=== PATIENT | male | born 1970 | race African-American/Black ===

== ENCOUNTER 2016-10-16 20:30 | Inpatient (IN) | payer MEDICARE ==
[~2016-10-16] VITALS: Ht 188 cm; Wt 77.1 kg
[2016-10-16 21:13] VITALS: BP 134/95
[2016-10-16] MEDS ORDERED: Ketorolac 30mg Inj IV ONE (21:15)
[2016-10-16 21:24] LABS: BASOPHILS % (AUTO) 1.4 % (0.0-2.0); EOSINOPHILS % (AUTO) 0.3 % (0.0-3.0); LYMPHOCYTES % (AUTO) 28.2 % (20.0-45.0); MEAN CORPUSCULAR VOLUME 91 FL (80-99); MEAN PLATELET VOLUME 7.4 FL (6.5-10.1); MONOCYTES % (AUTO) 3.9 % (1.0-10.0); NEUTROPHILS % (AUTO) 66.2 % (45.0-75.0); PLATELET COUNT 337 K/UL (150-450); RED BLOOD COUNT 5.18 M/UL (4.70-6.10); WHITE BLOOD COUNT 10.7 K/UL (4.8-10.8)
[2016-10-16 21:51] LABS: ALANINE AMINOTRANSFERASE 21 U/L (3-41); ALBUMIN/GLOBULIN RATIO 1.6 (1.0-2.7); ANION GAP 20 (5-15); ASPARTATE AMINO TRANSFERASE 17 U/L (5-40); CALCIUM 9.4 mg/dL (8.6-10.2); CARBON DIOXIDE 22 mEQ/L (20-30); CHLORIDE 94 mEQ/L (98-107); GLOMERULAR FILTRATION RATE > 60 mL/min (>60); HEMOLYSIS 19; SODIUM 136 mEQ/L (135-145); TOTAL PROTEIN 7.1 g/dL (6.6-8.7); TROPONIN I < 0.30 ng/mL (<=0.30)
[2016-10-16 22:05] LABS: PROTHROMBIN TIME 9.7 SEC (9.30-11.50)
--- NOTE | 2016-10-16 22:13 | Emergency Room Report ---
History of Present Illness General Chief Complaint: Generalized Weakness Source: Patient Present Illness HPI The patient presents with generalized weakness, blurred vision, polyuria polydipsia and total body pain. Apparently been off his medication since early July. There's been some mixup with his insurance. The patient denies any fevers, cough, vomiting, diarrhea or dysuria. He has diabetes and multiple sclerosis and has not been taking medication. His equilibrium is off when his multiple sclerosis is not treated. He wears a knee brace on the right-hand side. He denies any trauma. No rashes. Denies SI or HI. No headache. Allergies: Coded Allergies: CHEESE (Verified Allergy, Unknown, 10/17/16) DIPHENHYDRAMINE (Verified Allergy, Unknown, 10/16/16) Patient History Past Medical History: see triage record, DM, other - multiple sclerosis Social History: Reports: drug use, smoking Social History Narrative lives with room mate ("don't ask") Reviewed Nursing Documentation: PMH: Agreed, PSxH: Agreed Nursing Documentation-PMH Hx Diabetes: Yes Review of Systems All Other Systems: negative except mentioned in HPI Physical Exam Vital Signs Date Time Temp Pulse Resp B/P Pulse Ox O2 Delivery O2 Flow Rate FiO2 10/16/16 20:35 98.4 114 15 134/95 99 Room Air Sp02 EP Interpretation: reviewed, normal General Appearance: well appearing, no apparent distress, GCS 15 Head: normocephalic Eyes: bilateral eye PERRL, bilateral eye normal inspection ENT: dry mucus membranes Neck: supple Respiratory: lungs clear, normal breath sounds Cardiovascular #1: regular rate, rhythm Cardiovascular #2: 2+ radial (R) Gastrointestinal: normal inspection, normal bowel sounds, non tender, no mass, non-distended Musculoskeletal: back normal, gait/station normal, normal range of motion Neurologic: alert, oriented x3, motor strength/tone normal, DTRs symmetric, sensory intact, cerebellar normal Psychiatric: mood/affect normal, no suicidal/homicidal ideation, other - poor insight Reflexes: 2+ knee (R), 2+ knee (L) Skin: normal inspection, warm/dry Medical Decision Making Diagnostic Impression: Primary Impression: Hyperglycemia Additional Impressions: Methamphetamine abuse Multiple sclerosis Weakness Non compliance w medication regimen ER Course The patient presents with generalized weakness and polyuria polydipsia and lack of coordination with noncompliance. His initial blood sugar is quite elevated. Differential also includes occult infection, electrolyte abnormalities, dehydration amongst others. The patient will undergo evaluation with labs, EKG and chest x-ray. CT is not indicated at this time. Will receive IV hydration, analgesia and after initial boluses probably will need insulin. Hyperglycemia without acidosis. Insulin and metformin ordered. Pain treated, though patient requesting more pain medicine. Admit med Dr. Choudhury. Laboratory Tests Test 10/16/16 21:00 10/16/16 21:49 White Blood Count 10.7 K/UL (4.8-10.8) Red Blood Count 5.18 M/UL (4.70-6.10) Hemoglobin 16.6 G/DL (14.2-18.0) Hematocrit 47.3 % (42.0-52.0) Mean Corpuscular Volume 91 FL (80-99) Mean Corpuscular Hemoglobin 32.0 PG (27.0-31.0) H Mean Corpuscular Hemoglobin Concent 35.0 G/DL (32.0-36.0) Red Cell Distribution Width 12.0 % (11.6-14.8) Platelet Count 337 K/UL (150-450) Mean Platelet Volume 7.4 FL (6.5-10.1) Neutrophils (%) (Auto) 66.2 % (45.0-75.0) Lymphocytes (%) (Auto) 28.2 % (20.0-45.0) Monocytes (%) (Auto) 3.9 % (1.0-10.0) Eosinophils (%) (Auto) 0.3 % (0.0-3.0) Basophils (%) (Auto) 1.4 % (0.0-2.0) Prothrombin Time 9.7 SEC (9.30-11.50) Prothrombin Time INR 1.0 (0.9-1.1) PTT 24 SEC (23-33) Sodium Level 136 mEQ/L (135-145) Potassium Level 4.0 mEQ/L (3.4-4.9) Chloride Level 94 mEQ/L (98-107) L Carbon Dioxide Level 22 mEQ/L (20-30) Anion Gap 20 (5-15) H Blood Urea Nitrogen 11 mg/dL (7-23) Creatinine 1.0 mg/dL (0.7-1.2) Estimate Glomerular Filtration Rate > 60 mL/min (>60) Glucose Level 348 mg/dL (74-106) H Calcium Level 9.4 mg/dL (8.6-10.2) Total Bilirubin 0.5 mg/dL (0.0-1.2) Aspartate Amino Transferase (AST) 17 U/L (5-40) Alanine Aminotransferase (ALT) 21 U/L (3-41) Alkaline Phosphatase 97 U/L (40-129) Total Creatine Kinase 88 U/L (38-174) Troponin I < 0.30 ng/mL (<=0.30) Total Protein 7.1 g/dL (6.6-8.7) Albumin 4.4 g/dL (3.5-5.2) Globulin 2.7 g/dL Albumin/Globulin Ratio 1.6 (1.0-2.7) Urine Opiates Screen Negative (NEGATIVE) Urine Barbiturates Screen Negative (NEGATIVE) Phencyclidine (PCP) Screen Negative (NEGATIVE) Urine Amphetamines Screen Positive (NEGATIVE) H Urine Benzodiazepines Screen Negative (NEGATIVE) Urine Cocaine Screen Negative (NEGATIVE) Urine Marijuana (THC) Screen Negative (NEGATIVE) EKG Diagnostic Results Rate: normal Rhythm: NSR ST Segments: no acute changes Rhythm Strip Diag. Results EP Interpretation: yes Rhythm: NSR, no PVC's, no ectopy Chest X-Ray Diagnostic Results EP Interpretation: Yes Findings: no consolidation, no effusion, no pneumothorax, no acute cardiopulmonary disease Last Vital Signs Date Time Temp Pulse Resp B/P Pulse Ox O2 Delivery O2 Flow Rate FiO2 10/16/16 21:13 98.4 72 15 134/95 99 Room Air Status: improved Disposition: ADMITTED INPATIENT Condition: Serious Referrals: NON PHYSICIAN (PCP) [place] M.D. Oct 16, 2016 22:13
[2016-10-16] MEDS ORDERED: fentaNYL 100 mcg/2 mL IV ONE (22:15)
[2016-10-16] MEDS ORDERED: metFORMIN 500mg tab ORAL STA (22:51)
[2016-10-16] MEDS ORDERED: Norco 5mg/325mg tab ORAL ONE (23:30)
[2016-10-16 23:38] VITALS: BP 145/83
[2016-10-17] MEDS ORDERED: NKM
[2016-10-17 00:50] VITALS: BP 148/94
[2016-10-17] MEDS ORDERED: ADDERAL20 MG ORAL (01:54)
[2016-10-17 04:00] VITALS: BP 144/84
[2016-10-17] MEDS ORDERED: Zolpidem 5mg tab ORAL PRN (05:30)
[2016-10-17] MEDS: Norco 5mg/325mg tab ORAL PRN ×2 (06:54→12:21)
[2016-10-17] MEDS: NovoLOG Insulin Flexpen SUBQ SCH ×4 (07:05→21:27)
[2016-10-17 08:58] VITALS: BP 156/77
[2016-10-17] MEDS: Heparin 5000 units/ml inj SUBQ SCH ×2 (09:00→20:45)
[2016-10-17 12:52] VITALS: BP 146/67
--- NOTE | 2016-10-17 13:42 | Cardiology Report ---
APPROVED REPORT EKG Measurement Heart [id number] Normal sinus rhythm Normal ECG
--- NOTE | 2016-10-17 14:48 | Diagnostic Imaging Report ---
Indication: WEAK Technique: One view of the chest Comparison: none Findings: Lungs and pleural spaces are clear. Heart size is normal. Impression: No acute process
[2016-10-17 16:45] VITALS: BP 115/65
[2016-10-17] MEDS: Norco 10mg/325mg tab ORAL PRN ×2 (18:50→23:23)
[2016-10-17 20:00] VITALS: BP 135/85
--- NOTE | 2016-10-17 20:58 | History and Physical Report ---
DATE OF ADMISSION: 10/16/2016 REASON FOR ADMISSION: Diabetes, out of control. HISTORY OF PRESENT ILLNESS: This is a 46-year-old male, who I was asked to followup with history of generalized weakness, polyuria, and polydipsia. The patient currently stopped all medications due to mix up in the insurance. The patient has not seen me in the office for sometime. The patient appears to be apprehensive and somewhat agitated. The patient has been taking multiple medications previously including diabetic medications and insulin. Case was discussed in detail with the patient. The patient would like to reestablish care. The patient has had no fevers and chills. No falls. PAST MEDICAL HISTORY: The patient's past medical history is notable for diabetes, multiple sclerosis, peripheral vascular disease, chronic bronchitis, ADHD, and asthma. FAMILY HISTORY: Notable for multiple sclerosis and stroke. Father with heart disease. SOCIAL HISTORY: The patient is disabled. He is living at home alone. with one child. The patient apparently does smoke. REVIEW OF SYSTEMS: All 10-point is reviewed and otherwise negative. The patient is agitated and apprehensive. He is disheveled. PHYSICAL EXAMINATION: VITAL SIGNS: Reviewed. Blood pressure 156/77, pulse 82, respirations 20, 98%, and temperature 97.8 degrees. HEENT: Fairly negative. Extraocular movements are grossly intact. Oropharynx is otherwise moist. LUNGS: Otherwise clear. No rhonchi or wheeze. CARDIAC: Normal S1 and S2. Regular rate and rhythm without murmurs, rubs, or gallops. ABDOMEN: Soft, nontender, and nondistended. EXTREMITIES: No cyanosis. No clubbing. No edema. NEUROLOGIC: Grossly nonfocal. As mentioned, the patient is apprehensive. Able to ambulate. No cranial nerve palsy. LABORATORY DATA: Reviewed and appeared to be fairly negative with the exception of blood sugar of 348. IMPRESSION: 1. Diabetes, poorly controlled. 2. History of multiple sclerosis with anxiety and attention-deficit hyperactivity disorder per history. 3. History of smoking. He is concerned for withdrawals. 4. Significant pain. RECOMMENDATION: 1. We will need to resume home medications. 2. Nicotine patch. 3. IV hydration. 4. Management and close followup. 5. Discussed plan of care with the patient in detail and we will resume home medications as outlined previously. Plans for outpatient followup upon discharge. Joesph Choudhury M.D. DR: JOSE CRUZ JOB#: [id number] CC: STEVE
[2016-10-17] MEDS ORDERED: Levemir Flexpen SUBQ SCH (21:00)
[2016-10-18] VITALS: BP 113/70
[2016-10-18] MEDS: Norco 10mg/325mg tab ORAL PRN ×4 (04:03→19:59)
[2016-10-18] MEDS: NovoLOG Insulin Flexpen SUBQ SCH ×4 (06:17→21:10)
[2016-10-18 08:49] VITALS: BP 130/70
--- NOTE | 2016-10-18 09:44 | General Progress Note ---
Assessment/Plan Assessment/Plan IMPRESSION: 1. Diabetes, poorly controlled. 2. History of multiple sclerosis with anxiety and attention-deficit hyperactivity disorder per history. 3. History of smoking. 4. Significant pain. 5. anxiety 6. agitation PLAN care noted diabetic management dc planning pain control increase levimir dc planning in am d/w patient Subjective Allergies: Coded Allergies: CHEESE (Verified Allergy, Unknown, 10/17/16) DIPHENHYDRAMINE (Verified Allergy, Unknown, 10/16/16) Subjective care noted apprehensive does not feel ready to go home Objective Last 24 Hour Vital Signs Date Time Temp Pulse Resp B/P Pulse Ox O2 Delivery O2 Flow Rate FiO2 10/18/16 08:49 97.0 71 20 130/70 98 Room Air 10/18/16 05:04 98.2 10/18/16 00:00 98.2 79 20 113/70 99 Room Air 10/17/16 20:00 95.5 19 135/85 Room Air 10/17/16 16:45 97.4 72 20 115/65 97 Room Air 10/17/16 12:52 97.0 76 20 146/67 98 Room Air Intake and Output 10/17/16 10/18/16 19:00 07:00 Intake Total 360 ml 1330 ml Balance 360 ml 1330 ml Intake Oral 360 ml 1330 ml # Voids 3 4 Laboratory Tests 10/17/16 09:45: Hemoglobin A1c 15.4H Height (Feet): 6 Height (Inches): 2.00 Weight (Pounds): 170 Objective HEENT: Fairly negative. Extraocular movements are grossly intact. Oropharynx is otherwise moist. LUNGS: Otherwise clear. No rhonchi or wheeze. CARDIAC: Normal S1 and S2. Regular rate and rhythm without murmurs, rubs, or gallops. ABDOMEN: Soft, nontender, and nondistended. EXTREMITIES: No cyanosis. No clubbing. No edema. NEUROLOGIC: Grossly nonfocal. As mentioned, the patient is apprehensive. Able to ambulate. No cranial nerve palsy. very apprehensive and agitated GEETA MANUEL Oct 18, 2016 09:44
[2016-10-18] MEDS: Heparin 5000 units/ml inj SUBQ SCH ×2 (10:59→21:11)
[2016-10-18 12:38] VITALS: BP 126/68
[2016-10-18 16:17] VITALS: BP 114/75
[2016-10-18 20:00] VITALS: BP 103/65
[2016-10-18] MEDS ORDERED: Levemir Flexpen SUBQ SCH (21:00)
[2016-10-19] VITALS: BP 100/65
[2016-10-19] MEDS: NovoLOG Insulin Flexpen SUBQ SCH ×3 (06:04→17:49)
[2016-10-19] MEDS: Norco 10mg/325mg tab ORAL PRN ×3 (06:05→11:38)
[2016-10-19 08:00] VITALS: BP 100/60
[2016-10-19] MEDS: Heparin 5000 units/ml inj SUBQ SCH (08:45)
--- NOTE | 2016-10-19 09:04 | General Progress Note ---
Assessment/Plan Assessment/Plan IMPRESSION: 1. Diabetes, poorly controlled. 2. History of multiple sclerosis with anxiety and attention-deficit hyperactivity disorder per history. 3. History of smoking. 4. Significant pain. 5. anxiety 6. agitation PLAN care noted diabetic management; increase dose dc planning today home health on dc pain control call in all meds to pharmacy close follow up and intervention double portions Subjective Allergies: Coded Allergies: CHEESE (Verified Allergy, Unknown, 10/17/16) DIPHENHYDRAMINE (Verified Allergy, Unknown, 10/16/16) Subjective care noted apprehensive but better wants to go home Objective Last 24 Hour Vital Signs Date Time Temp Pulse Resp B/P Pulse Ox O2 Delivery O2 Flow Rate FiO2 10/19/16 08:00 97.7 63 18 100/60 98 Room Air 10/19/16 07:29 98.3 10/19/16 00:00 98.0 77 18 100/65 Room Air 10/18/16 20:00 98.3 71 20 103/65 97 Room Air 10/18/16 16:17 98.1 78 20 114/75 100 Room Air 10/18/16 12:38 97.0 75 20 126/68 99 Room Air Intake and Output 10/18/16 10/19/16 19:00 07:00 Intake Total 360 ml 920 ml Balance 360 ml 920 ml Intake Oral 360 ml 920 ml # Voids 3 6 Height (Feet): 6 Height (Inches): 2.00 Weight (Pounds): 170 Objective HEENT: Fairly negative. Extraocular movements are grossly intact. Oropharynx is otherwise moist. LUNGS: Otherwise clear. No rhonchi or wheeze. CARDIAC: Normal S1 and S2. Regular rate and rhythm without murmurs, rubs, or gallops. ABDOMEN: Soft, nontender, and nondistended. EXTREMITIES: No cyanosis. No clubbing. No edema. NEUROLOGIC: Grossly nonfocal. As mentioned, the patient is apprehensive. Able to ambulate. No cranial nerve palsy. very apprehensive and agitated GEETA MANUEL Oct 19, 2016 09:04
[2016-10-19 12:00] VITALS: BP 110/68
[2016-10-19 15:59] VITALS: BP 120/74
[2016-10-19] MEDS ORDERED: NOVOLOG100 UNITS1 (18:17)
--- NOTE | 2016-10-20 13:04 | Discharge Summary ---
Discharge Summary Hospital Course Date of Admission Oct 16, 2016 at 21:40 Date of Discharge Oct 19, 2016 at 18:53 Admitting Diagnosis hyperglycemia HPI Eddi Haq is a 46 year old male who was admitted on Oct 16, 2016 at 21:40 for Hyperglycemia Hospital Course [id number] Discharge Discharge Disposition Patient was discharged to Home (01) Discharge Diagnoses: Orly Olsen NP Oct 20, 2016 13:04
--- NOTE | 2016-10-20 21:38 | Discharge Summary 2 SIG ---
DATE OF ADMISSION: 10/16/2016 DATE OF DISCHARGE: 10/19/2016 BRIEF HOSPITAL COURSE: The patient is a 46-year-old male, who had generalized weakness, polyuria and polydipsia. The patient had stopped medications due to mix up with the medical insurance. The patient has not presented to the office for some time and appeared to be apprehensive and agitated. The patient has been on multiple medications previously including diabetic medications and insulin. The patient presented to the doctor's office to establish care. He presented to ED complaining of generalized weakness, polyuria and polydipsia. On evaluation, initial blood sugar was high. Glucose level was 348. Anion gap of 28. He was admitted. Blood sugars were monitored. The patient was given pain control. Levemir dose was adjusted to 35 units at q.h.s. and was continued on Januvia 100 mg a.c. breakfast and Starlix 120 mg t.i.a.c. Hemoglobin A1c was 15. Blood sugar was better and the patient was eventually discharged home with home health. FINAL DIAGNOSES: 1. Diabetes mellitus type 2, out of control. 2. Anxiety and attention deficit hyperactivity disorder. 3. Anxiety. 4. Agitation. 5. History of smoking. Joesph Choudhury M.D. I have been assigned to dictate discharge summary on this account and I was not involved in the patient's management. Orly Olsen N.P. DR: YRN JOB#: [id number] CC: STEVE
== END 2016-10-19 18:53 | disposition home health service (06) | DRG 639 ==
LOC: EMR 21:20 → 4W 21:40 → EDBEDREQ 22:32 → 4W 23:52
DX: E11.65 Type 2 diabetes mellitus with hyperglycemia (principal); G35 Multiple sclerosis; F41.9 Anxiety disorder, unspecified; F90.9 Attention-deficit hyperactivity disorder, unspecified type; Z87.891 Personal history of nicotine dependence; Z88.8 Allergy status to other drugs, medicaments and biological substances; Z91.14 Patient's other noncompliance with medication regimen; R45.1 Restlessness and agitation
CPT/HCPCS: 36415; 71010; 80053; 80300; 82550; 82962; 83036; 84484; 85025; 85610; 85730; 93005; J1815; J2405; S5561